=== PATIENT | female | born 1995 | race Caucasian/White ===

== ENCOUNTER 2020-09-15 19:27 | Inpatient (IN) | payer BC ==
[~2020-09-15] VITALS: Ht 167.7 cm; Wt 87.4 kg
--- NOTE | 2020-09-15 19:32 | NUR ---
KAI PACE presented to unit via ambulatory from ED, accompanied by , with c/o INDUCTION. KAI PACE weighed, gowned, voided, and to bed. EFHM and TOCO applied, VS taken. KAI PACE oriented to bed controls, call light, TV, heat, and A/C controls.
[2020-09-15 19:45] VITALS: BP 121/79
[2020-09-15] MEDS ORDERED: D5 LR IV SOLUTION 1,000 ML IV ONE (20:11)
[2020-09-15] MEDS ORDERED: AMPICILLIN FOR IV USE 2,000 MG in WATER (STERILE) FOR INJECTION 14.8 ML IV SCH (20:24)
[2020-09-15] MEDS ORDERED: AMPICILLIN 2,000 MG/14.8 ML (IV USE) ONE (20:25)
[2020-09-15] MEDS ORDERED: NS IV 500 ML 500 ML ONE (20:25)
[2020-09-15] MEDS ORDERED: WATER (STERILE) FOR INJECTION 20 ML ONE (20:25)
[2020-09-15] MEDS ORDERED: NS IV 500 ML 500 ML IV ONE (20:30)
[2020-09-15] MEDS ORDERED: TERBUTALINE INJ 1 MG/ML (BRETHINE) AMP SC PRN (20:30)
[2020-09-15] MEDS ORDERED: MISOPROSTOL 100 MCG (CYTOTEC) TAB PO ONE (20:30)
[2020-09-15 20:32] LABS: BASOPHILS % (AUTO) 0 % (0-10); EOSINOPHILS # (AUTO) 0.1 10^3/uL (0.0-0.3); EOSINOPHILS % (AUTO) 1 % (0-10); HEMATOCRIT 35 % (35-52); HEMOGLOBIN 11.9 g/dL (11.5-16.0); LYMPHOCYTES # (AUTO) 1.9 10^3/uL (1.0-4.0); LYMPHOCYTES % (AUTO) 17 % (12-44); MEAN CORPUSCULAR HEMOGLOBIN 29 pg (25-34); MEAN CORPUSCULAR HGB CONC 34 g/dL (32-36); MEAN CORPUSCULAR VOLUME 86 fL (80-99); MEAN PLATELET VOLUME 10.5 fL (9.0-12.2); MONOCYTES # (AUTO) 0.9 10^3/uL (0.0-1.0); MONOCYTES % (AUTO) 8 % (0-12); NEUTROPHILS # (AUTO) 8.1 10^3/uL (1.8-7.8); NEUTROPHILS % (AUTO) 73 % (42-75); PLATELET COUNT 245 10^3/uL (130-400)
[2020-09-15] MEDS: D5 LR IV SOLUTION 1,000 ML IV SCH (20:36)
[2020-09-15] MEDS ORDERED: PREN1TAB19 PO (21:18)
[2020-09-15 21:20] VITALS: BP 131/77
[2020-09-15] MEDS: CATHETER FLUSH 10 ML SYR IV SCH (22:00)
[2020-09-15 22:32] VITALS: BP 120/63
[2020-09-16] VITALS (57 sets, daily range): BP systolic 107–147; BP diastolic 56–83
[2020-09-16] MEDS: AMPICILLIN FOR IV USE 1,000 MG in WATER (STERILE) FOR INJECTION 7.4 ML IV SCH ×4 (00:13→12:16)
[2020-09-16] MEDS: MISOPROSTOL 100 MCG (CYTOTEC) TAB PO SCH ×2 (01:26→05:30)
[2020-09-16] MEDS: D5 LR IV SOLUTION 1,000 ML IV SCH ×2 (03:45→12:15)
[2020-09-16] MEDS: CATHETER FLUSH 10 ML SYR IV SCH (05:39)
[2020-09-16] MEDS ORDERED: OXYTOCIN PRE-MIX DRIP 500 ML IV ONE (06:48)
--- NOTE | 2020-09-16 06:50 | NUR ---
Dr. Melvin updated on pt's status, pitocin protocol order received.
[2020-09-16] MEDS ORDERED: OXYTOCIN PRE-MIX DRIP 500 ML IV SCH ×2 (07:00→16:00)
[2020-09-16] MEDS ORDERED: fentaNYL 2 mcg/ml BUPIVA 0.125 100 ML ONE (09:05)
--- NOTE | 2020-09-16 09:12 | NUR ---
Anesthesia notified of epidural request
--- NOTE | 2020-09-16 09:18 | History & Physical-OB ---
OB - Chief Complaint & HPI Date/Time Date of Admission: Date of Admission: Sep 15, 2020 at 7:27 pm Date seen by a Provider: Sep 16, 2020 Time Seen by a Provider: 07:55 Chief Complaint/History OB-Reason for Admission/Chief: Induction of Labor Hx : 1 Hx Para: 0 Expected Date of Delivery: Sep 20, 2020 Gestational Age in Weeks: 39 Gestational Age in Days: 2 Admission Nurse Assessment Rev: Yes History of Labs GBS pos Allergies and Home Medications Allergies Coded Allergies: No Known Drug Allergies (Unverified , 09/15/20) Home Medications Vit/Iron Fumarate/FA 1 Each Tablet, 1 EACH PO DAILY, (Reported) Patient Home Medication List Home Medication List Reviewed: Yes OB - History Hx of Present Care: Yes Ultrasounds: Normal mid trimester US Obstetrical Complications: None Medical Complications: None Patient Past Medical History n/a OB - Admission Exam Physical Exam Vitals: Vital Signs 09/15/20 09/16/20 09/16/20 19:45 07:50 08:20 Temp 37.5 Pulse 77 Resp 18 B/P (MAP) 123/77 (92) Pulse Ox 100 O2 Delivery Room Air HEENT: NCAT Heart: Rhythm Normal Lungs: Clear Abdomen: Gravid Extremities: Normal Reflexes: Normal Cervical Dilatation: 2cm Effacement: 50% Station: -1 Membranes: Intact Heart Rate: 130's Accelerations: Accelerations Present Decelerations: No Decelerations Short Term Variability: Present Senior Care Variability: Average (6-25) Contractions on Admission: 6-10 Minutes Apart Intensity: Mild Labs Laboratory Tests Test 09/15/20 20:00 09/15/20 20:40 Range/Units White Blood Count 11.0 4.3-11.0 10^3/uL Red Blood Count 4.06 3.80-5.11 10^6/uL Hemoglobin 11.9 11.5-16.0 g/dL Hematocrit 35 35-52 % Mean Corpuscular Volume 86 80-99 fL Mean Corpuscular Hemoglobin 29 25-34 pg Mean Corpuscular Hemoglobin Concent 34 32-36 g/dL Red Cell Distribution Width 12.7 10.0-14.5 % Platelet Count 245 130-400 10^3/uL Mean Platelet Volume 10.5 9.0-12.2 fL Immature Granulocyte % (Auto) 0 % Neutrophils (%) (Auto) 73 42-75 % Lymphocytes (%) (Auto) 17 12-44 % Monocytes (%) (Auto) 8 0-12 % Eosinophils (%) (Auto) 1 0-10 % Basophils (%) (Auto) 0 0-10 % Neutrophils # (Auto) 8.1 H 1.8-7.8 10^3/uL Lymphocytes # (Auto) 1.9 1.0-4.0 10^3/uL Monocytes # (Auto) 0.9 0.0-1.0 10^3/uL Eosinophils # (Auto) 0.1 0.0-0.3 10^3/uL Basophils # (Auto) 0.0 0.0-0.1 10^3/uL Immature Granulocyte # (Auto) 0.0 0.0-0.1 10^3/uL OB - Assessment/Plan/Diagnosis Assessment Assessment: induction of labor Admission Dx 25 yo @ 39.2 weeks GBS pos Admission Status: Inpatient Order (span 2 midnights) Reason for Inpatient Admission: Induction of labor at term 39 weeks Plan Plan: Induction Induction Method: per Misoprostol Protocol ILIR GREGORY DO Sep 16, 2020 9:18 am
[2020-09-16] MEDS ORDERED: LACTATED RINGERS 1,000 ML IV SCH (10:00)
[2020-09-16] MEDS ORDERED: METOCLOPRAMIDE INJ 10 MG/2 ML (REGLAN) IV PRN (10:00)
[2020-09-16] MEDS ORDERED: ONDANSETRON 4 MG/2 ML (SDV) Z0FRAN IV PRN (10:00)
[2020-09-16] MEDS ORDERED: EPIDURAL (fentaNYL 2 MCG/ML BUPIVA 0.125%)100 ML BAG EPI SCH (10:00)
[2020-09-16] MEDS ORDERED: diphenhydrAMINE 50 MG/ML INJ (BENADRYL) IV PRN (10:00)
[2020-09-16] MEDS ORDERED: NALOXONE 0.4 MG/ML 1 ML (NARCAN) VIAL IV PRN ×2 (10:00)
[2020-09-16] MEDS ORDERED: LIDOCAINE/EPI 2% 1:200,00 (XYLOCAINE) 10 ML VIAL ONE (14:44)
[2020-09-16] MEDS ORDERED: TETANUS,DIPTH,PERTUSS P/F (BOOSTRIX) 0.5 ML VIAL IM ONE (16:00)
[2020-09-16] MEDS ORDERED: BENZOCAINE/MENTHOL (DERMOPLAST) 60 ML CAN TP PRN (16:00)
[2020-09-16] MEDS ORDERED: MEASLES,MUMPS,RUBELLA 1 EA INJ SQ ONE (16:00)
[2020-09-16] MEDS ORDERED: WITCH HAZEL(TUCKS) 40 EA JAR TOP PRN (16:00)
[2020-09-16] MEDS ORDERED: HYDROcodone/APAP 5 MG/325 MG (LORTAB) TAB PO PRN (16:00)
[2020-09-16] MEDS ORDERED: DIBUCAINE (NUPERCAINAL) 1% OINT 30 GM TOP PRN (16:00)
--- NOTE | 2020-09-16 16:07 | OB Labor & Delivery Record ---
L&D History Date of Service Date of Service: Sep 16, 2020 History Expected Date of Delivery: Sep 20, 2020 Gestational Age in Weeks: 39 Hx : 1 Hx Para: 0 Complications Events: Routine care Operative Indications (Cesarea: N/A-Vaginal Delivery Intrapartal Events: None L&D Stage1 Stage One Onset of Labor - Date: Sep 16, 2020 Monitors and Tracing Monitor Mode: External Heart Rate: 130 Monitor Accelerations: Uniform Monitor Decelerations: None Station: 0 Automatic Centrifugal Station Operator Variability: Average (6-10) Short Term Variability: Present Presentation: Vertex Vital Signs VS - Last 72 Hours, by Label 09/15/20 09/15/20 09/15/20 09/16/20 19:45 21:20 22:32 00:13 Temp 36.9 36.9 Pulse 92 76 71 77 Resp 18 18 16 16 B/P (MAP) 131/77 (95) 120/63 (82) 131/83 (99) Pulse Ox 100 O2 Delivery Room Air Room Air Room Air Room Air 09/16/20 09/16/20 09/16/20 09/16/20 01:25 03:45 07:50 08:05 Temp 36.9 36.9 37.5 Pulse 73 76 96 Resp 16 18 18 B/P (MAP) 107/59 (75) 136/83 (100) 123/79 (94) O2 Delivery Room Air Room Air Room Air 09/16/20 09/16/20 09/16/20 09/16/20 08:20 08:35 08:50 09:05 Pulse 77 87 77 93 Resp 18 18 18 18 B/P (MAP) 123/77 (92) 134/83 (100) 126/76 (93) 129/80 (96) O2 Delivery Room Air Room Air Room Air Room Air 09/16/20 09/16/20 09/16/20 09/16/20 09:20 09:33 09:36 09:39 Pulse 99 90 86 86 Resp 18 18 18 18 B/P (MAP) 126/61 (82) 143/70 (94) 147/75 (99) 135/77 (96) Pulse Ox 100 100 100 O2 Delivery Room Air Room Air Room Air Room Air 09/16/20 09/16/20 09/16/20 09/16/20 09:42 09:45 09:48 09:51 Temp 37.6 Pulse 84 74 91 91 Resp 18 18 18 18 B/P (MAP) 129/78 (95) 129/80 (96) 120/76 (91) 119/73 (88) Pulse Ox 100 100 100 100 O2 Delivery Room Air Room Air Room Air Room Air 09/16/20 09/16/20 09/16/20 09/16/20 09:54 09:57 10:00 10:03 Pulse 86 94 87 90 Resp 18 18 18 18 B/P (MAP) 123/77 (92) 119/75 (90) 119/70 (86) 122/74 (90) Pulse Ox 100 99 99 99 O2 Delivery Room Air Room Air Room Air Room Air 09/16/20 09/16/20 09/16/20 09/16/20 10:06 10:09 10:12 10:15 Pulse 73 76 85 87 Resp 18 18 18 18 B/P (MAP) 120/74 (89) 119/73 (88) 116/73 (87) 133/66 (88) Pulse Ox 100 100 97 100 O2 Delivery Room Air Room Air Room Air Room Air 09/16/20 09/16/20 09/16/20 09/16/20 10:20 10:30 10:35 10:40 Pulse 82 76 77 95 Resp 18 18 18 18 B/P (MAP) 125/71 (89) 126/66 (86) 119/67 (84) 115/70 (85) Pulse Ox 100 100 100 100 O2 Delivery Room Air Room Air Room Air Room Air 09/16/20 09/16/20 09/16/20 09/16/20 11:00 11:15 11:30 11:45 Temp 36.8 Pulse 74 92 80 86 Resp 18 18 18 18 B/P (MAP) 108/57 (74) 129/75 (93) 136/75 (95) 118/69 (85) Pulse Ox 100 100 100 O2 Delivery Room Air Room Air Room Air Room Air 09/16/20 09/16/20 09/16/20 09/16/20 12:00 12:15 12:30 12:45 Pulse 86 89 90 96 Resp 18 18 18 18 B/P (MAP) 123/68 (86) 122/74 (90) 127/76 (93) 130/63 (85) O2 Delivery Room Air Room Air Room Air Room Air 09/16/20 09/16/20 13:00 13:30 Temp 37.7 Pulse 105 96 Resp 18 18 B/P (MAP) 123/76 (92) 124/71 (88) O2 Delivery Room Air Room Air Rupture of Membranes Spontaneous Ruture of Membrane: Yes Amniotic Membrane Rupture Time: 0752 Amniotic Membrane Fluid Desc.: Clear Vaginal Bleeding Description: Normal Show Induction/Anesthesia Epidural Cath Placement - Time: 941 Progress/Notes Patient admitted last night for induction of labor at 39 weeks with misoprostol used po for cervical ripening. This AM pitocin was started, and she progressed after receiving an epidural to complete and 0 station. L&D Stage2 Stage Two Stage II Date: Sep 16, 2020 Monitors and Tracing Monitor Mode: External Heart Rate: 130 Monitor Accelerations: Uniform Monitor Decelerations: Variable Automatic Centrifugal Station Operator Variability: Average (6-10) Short Term Variability: Present Position: Right Occiput Anterior Presentation: Vertex Cord Descript/Complications Cord Vessel Description: 3 Vessels Complications nuchal cord reduced x 1, small partial cord avulsion. Delivery Type Delivery Method: Spontaneous Vaginal Episiotomy/Perineal Laceration Laceraction(s)/Extensions: Yes Episiotomy Description: Left Mediolateral Degree (describe repair) LML repaired using 3-0 and 2-0 vicryl suture in usual fashion. Condition of Infant Delivery 1 minute Comment: 8 5 minute Comment: 9 Notes live male weight 9lbs 7 oz Condition of Infant Condition of : Living Exam: No Observed Abnormalities Resuscitation Resuscitation: N/A - Spontaneous Resp L&D Stage3 Stage Three Stage III Date: Sep 16, 2020 Pictocin Pitocin Administration mu/min: 0 Pitocin ml/hr: 0 Pitocin Administration Comment: Wide open 30 mu at delivery of placenta Placenta Delivery Placenta Delivery: Spontaneous Delivery Summary Summary Estimated blood loss (mL): 400 Attending at delivery: Ilir Gregory DO Condition of Delivery Examined: Cervix Examined, Uterus Explored Post Hemorrhage: No Condition of Mother stable Condition of Infant (s) stable ILIR GREGORY DO Sep 16, 2020 16:07
--- NOTE | 2020-09-16 16:15 | Discharge Inst-Women's Service ---
Discharge Inst-Women's Serv Depart Medication/Instructions New, Converted or Re-Newed RX: RX on Chart Final Diagnosis PPD 1 NVD Problems Reviewed?: Yes Consults/Follow Up Additional Follow Up: Yes Orders/Referrals Dr. Gregory in 6 weeks Activity Activity: Activity as Tolerated Driving Instructions: No Driving for 1 Week NO SMOKING: NO SMOKING Nothing Inside Vagina: No Douching, No [place], No Tampons Diet Discharge Diet: No Restrictions Symptoms to Report to : Bleeding Excessive, Pain Increased, Fever Over 101 Degrees F, Vaginal Bleeding Increase, Questions/Concerns ILIR GREGORY DO Sep 16, 2020 16:15
[2020-09-16] MEDS ORDERED: ACHD5005 PO (16:17)
[2020-09-16] MEDS ORDERED: BENZ78AE5 TP (16:17)
[2020-09-16] MEDS ORDERED: IBUP-844 PO (16:17)
[2020-09-16] MEDS ORDERED: DIBU30OI TOP (16:17)
[2020-09-16] MEDS ORDERED: DCS100C PO (16:17)
--- NOTE | 2020-09-16 18:00 | NUR ---
To room to move pt to PP room. FFU/1, light rubra lochia noted, no clots expressed. Epidural catheter removed, tip intact. Pt assisted to sitting position at side of bed. Pt desires own depends underwear instead of hospital provided mesh underwear and pad. Pt assisted into Depends. Pt assisted to standing position at side of bed. At this time pt reports feeling dizzy and nauseated. Pt assisted back to bed and to trendelenberg, VS taken, stable. After a few minutes, pt reports feeling better. Pt again assisted to standing, this time without incident. Pt assisted to wheelchair and taken to PP room 310 accompanied by RNs, S.O., , and all personal belongings. Pt denies urge to void at this time, so assisted to bed. Pt and S.O. oriented to room and call light. packet explained. Motrin given. Pt denies further needs or concerns
[2020-09-16] MEDS: IBUPROFEN 600 MG (MOTRIN) TAB PO SCH (18:17)
[2020-09-16] MEDS: DOCUSATE SODIUM 100 MG (COLACE) CAP PO SCH (20:23)
[2020-09-16] MEDS ORDERED: CATHETER FLUSH 10 ML SYR IV SCH (22:00)
[2020-09-17 00:01] VITALS: BP 114/78
[2020-09-17] MEDS: IBUPROFEN 600 MG (MOTRIN) TAB PO SCH ×4 (00:01→18:27)
[2020-09-17 04:45] VITALS: BP 111/62
[2020-09-17 06:32] LABS: BASOPHILS % (AUTO) 0 % (0-10); EOSINOPHILS # (AUTO) 0.1 10^3/uL (0.0-0.3); EOSINOPHILS % (AUTO) 1 % (0-10); HEMATOCRIT 30 % (35-52); LYMPHOCYTES # (AUTO) 1.5 10^3/uL (1.0-4.0); LYMPHOCYTES % (AUTO) 11 % (12-44); MEAN CORPUSCULAR HEMOGLOBIN 29 pg (25-34); MEAN CORPUSCULAR HGB CONC 33 g/dL (32-36); MEAN CORPUSCULAR VOLUME 87 fL (80-99); MEAN PLATELET VOLUME 10.6 fL (9.0-12.2); MONOCYTES # (AUTO) 1.2 10^3/uL (0.0-1.0); MONOCYTES % (AUTO) 9 % (0-12); NEUTROPHILS # (AUTO) 10.9 10^3/uL (1.8-7.8); NEUTROPHILS % (AUTO) 80 % (42-75); PLATELET COUNT 178 10^3/uL (130-400); WHITE BLOOD COUNT 13.7 10^3/uL (4.3-11.0)
[2020-09-17] MEDS ORDERED: PRENATAL VITAMIN 1 EA TAB PO SCH (07:00)
--- NOTE | 2020-09-17 07:53 | Anesthesia-Regional Post-Op ---
Regional Patient Condition Mental Status: Alert, Oriented x3 Circulation: Same as Pre-Op Headache: Absent Sensation: Full Recovery Motor Block: Absent Post Op Complications Complications None Follow Up Care/Instructions Patient Instructions None needed. Anesthesia/Patient Condition Patient is doing well, no complaints, stable vital signs, no apparent adverse anesthesia problems. No complications reported per nursing. ISABELLE MARAVILLA CRNA Sep 17, 2020 07:53
--- NOTE | 2020-09-17 07:54 | NUR ---
Dr Melvin here to see pt. Plan for discharge today
[2020-09-17] MEDS ORDERED: FERROUS SULF 325 MG (IRON) TAB PO SCH (08:00)
--- NOTE | 2020-09-17 08:22 | Postpartum Progress Note ---
Note Note Day # 1 Subjective: Patient is without complaints. Ambulating, voiding. Tolerating a regular diet without nausea or vomiting. Normal lochia. Pain is well controlled with oral pain medications. Objective: Physical Exam: General - Alert and oriented, no apparent distress Abdomen - Soft, appropriately tender to palpation, non-distended, fundus firm at umbilicus Extremities - no edema, negative Joseline's bilaterally Assessment: PPD 1 NVD Acute blood loss anemia Plan: Routine care. Encourage breast feeding. Encourage ambulation. Ferrous sulfate supplementation. Plan for discharge today Vitals - Labs Vital Signs - I&O Vital Signs Date Time Temp Pulse Resp B/P (MAP) Pulse Ox O2 Delivery O2 Flow Rate FiO2 09/17/20 04:45 36.7 83 18 111/62 (78) 98 Room Air 09/17/20 00:01 36.5 83 18 114/78 (90) 98 Room Air 09/16/20 20:23 37.6 105 18 115/56 (75) 98 Room Air 09/16/20 18:00 37.6 82 18 123/79 (94) Room Air 09/16/20 17:44 100 18 121/69 (86) Room Air 09/16/20 17:29 95 18 127/74 (91) Room Air 09/16/20 17:14 95 18 128/66 (86) Room Air 09/16/20 16:59 38.1 97 18 137/73 (94) Room Air 09/16/20 16:44 85 18 128/67 (87) Room Air 09/16/20 16:29 84 18 127/60 (82) Room Air 09/16/20 16:14 134 18 143/67 (92) Room Air 09/16/20 15:59 100 18 140/64 (89) Room Air 09/16/20 15:44 38.2 114 18 137/60 (85) Room Air 09/16/20 15:29 87 18 127/67 (87) Room Air 09/16/20 15:15 38.1 111 18 120/79 (93) Room Air 09/16/20 15:00 97 18 120/78 (92) Room Air 09/16/20 14:45 105 18 114/70 (85) Room Air 09/16/20 14:30 37.8 105 18 114/70 (85) Room Air 09/16/20 14:15 115 18 118/68 (85) Room Air 09/16/20 14:00 100 18 122/69 (86) Room Air 09/16/20 13:45 103 18 124/72 (89) Room Air 09/16/20 13:30 96 18 124/71 (88) Room Air 09/16/20 13:00 37.7 105 18 123/76 (92) Room Air 09/16/20 12:45 96 18 130/63 (85) Room Air 09/16/20 12:30 90 18 127/76 (93) Room Air 09/16/20 12:15 89 18 122/74 (90) Room Air 09/16/20 12:00 86 18 123/68 (86) Room Air 09/16/20 11:45 86 18 118/69 (85) Room Air 09/16/20 11:30 80 18 136/75 (95) 100 Room Air 09/16/20 11:15 92 18 129/75 (93) 100 Room Air 09/16/20 11:00 36.8 74 18 108/57 (74) 100 Room Air 09/16/20 10:40 95 18 115/70 (85) 100 Room Air 09/16/20 10:35 77 18 119/67 (84) 100 Room Air 09/16/20 10:30 76 18 126/66 (86) 100 Room Air 09/16/20 10:20 82 18 125/71 (89) 100 Room Air 09/16/20 10:15 87 18 133/66 (88) 100 Room Air 09/16/20 10:12 85 18 116/73 (87) 97 Room Air 09/16/20 10:09 76 18 119/73 (88) 100 Room Air 09/16/20 10:06 73 18 120/74 (89) 100 Room Air 09/16/20 10:03 90 18 122/74 (90) 99 Room Air 09/16/20 10:00 87 18 119/70 (86) 99 Room Air 09/16/20 09:57 94 18 119/75 (90) 99 Room Air 09/16/20 09:54 86 18 123/77 (92) 100 Room Air 09/16/20 09:51 91 18 119/73 (88) 100 Room Air 09/16/20 09:48 91 18 120/76 (91) 100 Room Air 09/16/20 09:45 74 18 129/80 (96) 100 Room Air 09/16/20 09:42 37.6 84 18 129/78 (95) 100 Room Air 09/16/20 09:39 86 18 135/77 (96) 100 Room Air 09/16/20 09:36 86 18 147/75 (99) 100 Room Air 09/16/20 09:33 90 18 143/70 (94) 100 Room Air 09/16/20 09:20 99 18 126/61 (82) Room Air 09/16/20 09:05 93 18 129/80 (96) Room Air 09/16/20 08:50 77 18 126/76 (93) Room Air 09/16/20 08:35 87 18 134/83 (100) Room Air I & O 09/17/20 07:00 Intake Total 2414.8 ml Balance 2414.8 ml Labs Laboratory Tests 09/17/20 06:05: White Blood Count 13.7H, Red Blood Count 3.50L, Hemoglobin 10.0L, Hematocrit 30L , Mean Corpuscular Volume 87, Mean Corpuscular Hemoglobin 29, Mean Corpuscular Hemoglobin Concent 33, Red Cell Distribution Width 13.0, Platelet Count 178, Mean Platelet Volume 10.6, Immature Granulocyte % (Auto) 0, Neutrophils (%) (Auto) 80H, Lymphocytes (%) (Auto) 11L, Monocytes (%) (Auto) 9, Eosinophils (%) (Auto) 1, Basophils (%) (Auto) 0, Neutrophils # (Auto) 10.9H, Lymphocytes # (Auto) 1.5, Monocytes # (Auto) 1.2H, Eosinophils # (Auto) 0.1, Basophils # (Auto) 0.0, Immature Granulocyte # (Auto) 0.1 ILIR GREGORY DO Sep 17, 2020 8:22 am
[2020-09-17] MEDS: DOCUSATE SODIUM 100 MG (COLACE) CAP PO SCH (09:14)
[2020-09-17 09:17] VITALS: BP 126/73
[2020-09-17 12:18] VITALS: BP 119/70
[2020-09-17 18:35] VITALS: BP 121/73
== END 2020-09-17 18:40 | disposition home or self-care (01) | DRG 806 ==
LOC: LDRP 19:27
PROVIDERS: ADMIT Obstetrics & Gynecology; ATTEND Obstetrics & Gynecology
PROC: 10E0XZZ Delivery of Products of Conception, External Approach (ICD-10-PCS; principal; 2020-09-16)
PROC: 0W8NXZZ Division of Female Perineum, External Approach (ICD-10-PCS; 2020-09-16)
DX: O69.81X0 Labor and delivery complicated by cord around neck, without compression, not applicable or unspecified (principal); D62 Acute posthemorrhagic anemia; Z37.0 Single live birth; Z3A.39 39 weeks gestation of pregnancy; O90.81 Anemia of the puerperium
CPT/HCPCS: 36415; 83033; 85025; 86850; 86900; 86901; 87635

== ENCOUNTER → 2022-07-07 | Outpatient (CLI) | payer BC ==
[~2022-07-07] MED LIST: ACHD5005 PO; BENZ78AE5 TP; DIBU30OI TOP; DOCU-239 PO; IBUP-844 PO; PREN1TAB19 PO
--- NOTE | 2022-07-07 17:30 | Diagnostic Imaging Report ---
INDICATION: anatomy survey. TECHNIQUE: Multiple real-time grayscale images were obtained over the gravid uterus. COMPARISON: None FINDINGS: Single live intrauterine is in breech presentation. The cervix measures 4.7 cm in length. Placenta is posteriorly positioned and there is no previa. The amount of amniotic fluid appears visually appropriate. Maternal adnexa are not well evaluated due to advanced gestational age. Following anatomy is visualized and normal: Stomach, right ventricular outflow tract, left ventricular outflow tract, spine, diaphragm, kidneys, umbilical cord insertion, urinary bladder, cerebral ventricles, posterior fossa, four-chamber heart, profile and lip/nose. Biometrical measurements are as follows: Biparietal 4.47 cm, age 19 weeks 4 days. Head circumference 17.94 cm, age 20 weeks 3 days. Abdominal circumference 15.15 cm, age 20 weeks 3 days. Femur length 3.30 cm, age 20 weeks 3 days. Sonographic estimate age: 20 weeks 2 days. Sonographic estimated date of delivery: 11/22/2022. Estimated Weight: 346 gm (+/- 51 gm). LMP percentile: 39%. heart rate: 153 beats per minute. number: 1 of 1. IMPRESSION: 1. Single live intrauterine with normal anatomy survey. 2. Estimated weight is at the 39th percentile for gestational age based on clinical dates. Dictated by: Dictated on workstation # [id number]
== END ==
LOC: RAD 14:56
PROVIDERS: ATTEND Obstetrics & Gynecology
DX: Z34.02 Encounter for supervision of normal first pregnancy, second trimester (principal); Z3A.00 Weeks of gestation of pregnancy not specified
CPT/HCPCS: 76805

== ENCOUNTER 2022-10-24 10:07 | Outpatient (CLI) | payer BC ==
[2022-10-24] VITALS (10 sets, daily range): BP systolic 95–117; BP diastolic 55–82
[~2022-10-24] VITALS: Ht 170.2 cm; Wt 87.6 kg
[2022-10-24 11:15] LABS: BILIRUBIN,URINE NEGATIVE (NEGATIVE); CLARITY,URINE CLEAR; COLOR,URINE YELLOW; GLUCOSE, URINE (UA) NEGATIVE (NEGATIVE); KETONES,URINE NEGATIVE (NEGATIVE); LEUKOCYTE ESTERASE ,URINE TRACE (NEGATIVE); NITRITE,URINE NEGATIVE (NEGATIVE); PH,URINE 7.5 (5-9); PROTEIN,URINE NEGATIVE (NEGATIVE)
[2022-10-24 11:26] LABS: RBC,URINE 0 /HPF
[2022-10-24 11:27] LABS: BACTERIA,URINE TRACE /HPF
--- NOTE | 2022-10-25 08:06 | Physician Query-Final Dx ---
GERALDO,10/25/22 0806: Clinic Account Progress/Dx Physician Query: Please give diagnosis Please include # weeks gestation Date of Service Oct 24, 2022 at 10:07 ILIR GREGORY DO 10/25/22 1813: Clinic Account Progress/Dx DIAGNOSIS: Diagnosis Irregular contractions at 37 weeks ,SepOct 25, 2022 08:06 ILIR GREGORY DO Oct 25, 2022 18:13
== END 2022-10-24 12:35 | disposition home or self-care (01) ==
LOC: LDRP 10:07 → WSo 10:07
PROVIDERS: ATTEND Obstetrics & Gynecology
DX: O47.1 False labor at or after 37 completed weeks of gestation (principal); Z3A.37 37 weeks gestation of pregnancy
CPT/HCPCS: 81000; 87088; G0463; 99213

== ENCOUNTER 2022-11-01 12:56 | Inpatient (IN) | payer BC ==
[~2022-11-01] VITALS: Ht 167.7 cm; Wt 88.8 kg
[2022-11-01] VITALS (31 sets, daily range): BP systolic 94–136; BP diastolic 50–99
--- NOTE | 2022-11-01 13:05 | History & Physical-OB/GYN ---
LOIS JENSEN 11/01/22 1305: OB - Chief Complaint & HPI Date/Time Date of Admission: Date of Admission: Nov 01, 2022 at 12:56 Date seen by a Provider: Nov 01, 2022 Time Seen by a Provider: 13:15 Chief Complaint/History OB-Reason for Admission/Chief: Onset of Labor Hx : 2 Hx Para: 1 Expected Date of Delivery: Nov 21, 2022 Gestational Age in Weeks: 37 Gestational Age in Days: 1 Other reason for admission: active labor History of Labs A- Antibody negative VDRL NR HBsAg NR HIV NR G/C NR RI GBS Positive Allergies and Home Medications Allergies Coded Allergies: No Known Drug Allergies (Unverified , 09/15/20) Patient Home Medication List Home Medication List Reviewed: Yes Docusate Sodium (Dok) 100 Mg Capsule, 100 MG PO BID PRN for CONSTIPATION-1ST LINE Prescribed by: ILIR GREGORY on 09/16/20 1617 Vit/Iron Fumarate/FA ( Vitamins Tablet) 1 Each Tablet, 1 EACH PO DAILY, (Reported) Entered as Reported by: TIP GONZALEZ on 09/15/202117 Last Action: Last Taken Edited OB - History Hx of Present Care: Yes Ultrasounds: Normal mid trimester US Obstetrical Complications: None Medical Complications: None Information Pre-Hospital Medication Admins: none Induced Hypertension: No Maternal Gestational Diabetes: No Hemorrhage: No Obstetrical History Hx : 2 Hx Para: 1 Hx # Term Pregnancies: 1 Number of Living Children: 1 Hx Termination: No Hx Multiple Gestation: No Hx Ectopic : No Hx Stillbirth: No Hx Complication: No Hx Induced Hypertens: No Hx Maternal Gestational Diabet: No Hx Hemorrhage: No Delivery History Hx Dystocia: No Hx Forceps Assisted Delivery: No Hx Vacuum Extraction Assisted: No Hx Placenta Abnormality: No Hx Distress: No Hx Large For Gestational Age I: Yes Hx Small for Gestational Age I: No Hx Section: No Hx Vaginal Delivery Post C-Sec: No Hx Blood Disorders: No Adverse Rxn to Tranfusion: No Patient Past Medical History NC Social History/Family History Alcohol Use: Denies Use Recreational Drug Use: No Smoking Cessation: Never smoker 2nd Hand Smoke Exposure: No Immunizations Rubella: immune RPR/VDRL: Negative GBS Status: Positive HBsAG: Negative OB - Admission Exam Physical Exam HEENT: PERRLA Heart: Rhythm Normal Lungs: Clear Abdomen: Gravid Extremities: Edema Reflexes: Normal Cervical Dilatation: 3cm Effacement: 75% Station: -1 Heart Rate: 140's Accelerations: Accelerations Present Decelerations: No Decelerations Short Term Variability: Present Fdc Variability: Minimal (3-5) Contractions on Admission: >10 Minutes Apart OB - Assessment/Plan/Diagnosis Assessment Admission Dx at 39 weeks 1 day gestational age Presents in active labor GBS Positive Otherwise uncomplicated Admission Status: Inpatient Order (span 2 midnights) Reason for Inpatient Admission: active labor Plan Plan: Expectant Management ILIR GREGORY DO 11/02/22 0100: Allergies and Home Medications Allergies Coded Allergies: No Known Drug Allergies (Unverified , 09/15/20) Patient Home Medication List Docusate Sodium (Dok) 100 Mg Capsule, 100 MG PO BID PRN for CONSTIPATION-1ST LINE Prescribed by: ILIR GREGORY on 09/16/20 1617 Vit/Iron Fumarate/FA ( Vitamins Tablet) 1 Each Tablet, 1 EACH PO DAILY, (Reported) Entered as Reported by: TIP GONZALEZ on 09/15/202117 Last Action: Last Taken Edited Supervisory-Addendum Brief Verification & Attestation Participated in pt care: history Personally performed: exam Care discussed with: Medical Student Procedures: n/a Procedure type: I&D Results interpretation: Verified all documentation Verification and Attestation of Medical Student E/M Service A medical student performed and documented this service in my presence. I reviewed and verified all information documented by the medical student and made modifications to such information, when appropriate. I personally performed the physical exam and medical decision making. Ilir Gregory Nov 02, 2022,01:00 LOIS JENSEN Nov 01, 2022 13:05 ILIR GREGORY DO Nov 02, 2022 01:00
[2022-11-01] MEDS ORDERED: AMPICILLIN FOR IV USE 2,000 MG in NS (IVPB) 50 ML IV SCH (13:37)
[2022-11-01] MEDS ORDERED: CATHETER FLUSH 10 ML SYR IVP PRN (13:45)
[2022-11-01] MEDS ORDERED: LIDOCAINE 1% INJ 20 ML VIAL IJ PRN (13:45)
[2022-11-01 13:53] LABS: BASOPHILS % (AUTO) 0 % (0-10); EOSINOPHILS # (AUTO) 0.1 10^3/uL (0.0-0.3); EOSINOPHILS % (AUTO) 1 % (0-10); HEMATOCRIT 33 % (35-52); HEMOGLOBIN 11.3 g/dL (11.5-16.0); LYMPHOCYTES # (AUTO) 1.2 10^3/uL (1.0-4.0); LYMPHOCYTES % (AUTO) 13 % (12-44); MEAN CORPUSCULAR HEMOGLOBIN 29 pg (25-34); MEAN CORPUSCULAR HGB CONC 34 g/dL (32-36); MEAN CORPUSCULAR VOLUME 86 fL (80-99); MEAN PLATELET VOLUME 10.3 fL (9.0-12.2); MONOCYTES # (AUTO) 0.7 10^3/uL (0.0-1.0); MONOCYTES % (AUTO) 7 % (0-12); NEUTROPHILS # (AUTO) 7.5 10^3/uL (1.8-7.8); NEUTROPHILS % (AUTO) 79 % (42-75); PLATELET COUNT 184 10^3/uL (130-400); WHITE BLOOD COUNT 9.4 10^3/uL (4.3-11.0)
[2022-11-01] MEDS: D5 LR IV SOLUTION 1,000 ML IV SCH ×2 (14:15→21:58)
[2022-11-01] MEDS ORDERED: LIDOCAINE 1% INJ 10 ML VIAL INJ PRN (14:15)
[2022-11-01] MEDS: AMPICILLIN FOR IV USE 1,000 MG in NS (IVPB) 50 ML IV SCH ×2 (17:53→21:58)
[2022-11-01] MEDS: OXYTOCIN PRE-MIX DRIP 500 ML IV SCH (18:23)
[2022-11-01] MEDS ORDERED: fentaNYL 2 mcg/ml BUPIVA 0.125 100 ML ONE (19:22)
[2022-11-01] MEDS ORDERED: BUPIVACAINE 0.25% 10 ML (SENSORCAINE) VIAL ONE (19:57)
[2022-11-01] MEDS ORDERED: fentaNYL INJ 100 MCG/2 ML AMP ONE (19:57)
[2022-11-01] MEDS ORDERED: LACTATED RINGERS 1,000 ML IV SCH ×2 (20:00→20:30)
[2022-11-01] MEDS ORDERED: ONDANSETRON 4 MG/2 ML (SDV) Z0FRAN IV PRN (20:30)
[2022-11-01] MEDS ORDERED: diphenhydrAMINE 50 MG/ML INJ (BENADRYL) IV PRN (20:30)
[2022-11-01] MEDS ORDERED: fentaNYL 2 mcg/ml BUPIVA 0.125 100 ML EPI SCH (20:30)
[2022-11-01] MEDS ORDERED: NALOXONE 0.4 MG/ML 1 ML (NARCAN) VIAL IV PRN (20:30)
[2022-11-02] VITALS (17 sets, daily range): BP systolic 109–127; BP diastolic 56–78
[2022-11-02] MEDS ORDERED: OXYTOCIN PRE-MIX DRIP 500 ML IV SCH (01:15)
[2022-11-02] MEDS ORDERED: BENZOCAINE/MENTHOL (DERMOPLAST) 56 ML CAN TP PRN (01:15)
[2022-11-02] MEDS ORDERED: TETANUS,DIPTH,PERTUSS P/F (BOOSTRIX) 0.5 ML VIAL IM ONE (01:15)
[2022-11-02] MEDS ORDERED: MEASLES,MUMPS,RUBELLA 1 EA INJ SQ ONE (01:15)
[2022-11-02] MEDS ORDERED: HYDROcodone/APAP 5 MG/325 MG (LORTAB) TAB PO PRN (01:15)
[2022-11-02] MEDS ORDERED: NALOXONE 0.4 MG/ML 1 ML (NARCAN) VIAL IV PRN (01:15)
[2022-11-02] MEDS ORDERED: DIBUCAINE 1% OINTMENT 28 GM TUBE TOP PRN (01:15)
--- NOTE | 2022-11-02 01:28 | OB Labor & Delivery Record ---
L&D History Date of Service Date of Service: Nov 02, 2022 History Expected Date of Delivery: Nov 21, 2022 Gestational Age in Weeks: 37 Hx : 2 Hx Para: 1 Complications Events: Routine care Operative Indications (Cesarea: N/A-Vaginal Delivery Intrapartal Events: None L&D Stage1 Stage One Onset of Labor - Date: Nov 02, 2022 Monitors and Tracing Monitor Mode: External Heart Rate: 150 Monitor Accelerations: Uniform Monitor Decelerations: None Station: -1 Partner Integration Planner Variability: Average (6-10) Short Term Variability: Present Presentation: Vertex Vital Signs VS - Last 72 Hours, by Label 11/01/22 11/01/22 11/01/22 11/01/22 13:00 14:20 16:00 17:00 Temp 36.3 36.7 Pulse 108 96 88 Resp 18 18 18 B/P (MAP) 113/68 (83) 130/71 (90) Pulse Ox 98 98 100 O2 Delivery Room Air Room Air Room Air Room Air 11/01/22 11/01/22 11/01/22 11/01/22 18:00 18:15 18:30 18:45 Temp 36.6 Pulse 95 81 91 97 Resp 18 18 18 18 B/P (MAP) 110/68 (82) 123/80 (94) 133/73 (93) 130/73 (92) O2 Delivery Room Air Room Air Room Air Room Air 11/01/22 11/01/22 11/01/22 11/01/22 19:00 19:21 19:42 19:52 Temp 36.2 Pulse 90 90 91 83 Resp 18 18 18 18 B/P (MAP) 133/99 (110) 119/72 (88) 128/80 (96) 129/70 (89) O2 Delivery Room Air Room Air Room Air Room Air 11/01/22 11/01/22 11/01/22 11/01/22 20:06 20:15 20:21 20:24 Pulse 93 89 92 88 Resp 18 18 18 18 B/P (MAP) 136/68 (90) 121/79 (93) 106/60 (75) 94/50 (65) Pulse Ox 99 98 99 O2 Delivery Room Air Room Air Room Air Room Air 11/01/22 11/01/22 11/01/22 11/01/22 20:30 20:35 20:40 20:44 Pulse 95 88 92 73 Resp 18 16 16 16 B/P (MAP) 103/60 (74) 113/73 (86) 116/71 (86) 109/64 (79) Pulse Ox 99 99 99 100 O2 Delivery Room Air Room Air Room Air Room Air 11/01/22 11/01/22 11/01/22 11/01/22 21:02 21:17 21:33 21:48 Pulse 81 70 82 91 Resp 16 16 16 16 B/P (MAP) 107/58 (74) 99/54 (69) 105/60 (75) 99/57 (71) Pulse Ox 99 96 96 96 O2 Delivery Room Air Room Air Room Air Room Air 11/01/22 11/01/22 11/01/22 11/01/22 22:03 22:17 22:31 22:48 Temp 36.3 Pulse 81 82 85 86 Resp 16 16 16 16 B/P (MAP) 109/62 (78) 106/60 (75) 109/59 (76) 108/62 (77) Pulse Ox 98 98 97 98 O2 Delivery Room Air Room Air Room Air Room Air 11/02/22 00:03 Pulse 90 Resp 16 B/P (MAP) 117/68 (84) Pulse Ox 98 O2 Delivery Room Air Rupture of Membranes Spontaneous Ruture of Membrane: No Amniotic Membrane Rupture Time: 1607 Amniotic Membrane Fluid Desc.: Clear Vaginal Bleeding Description: Normal Show Induction/Anesthesia Epidural Cath Placement - Time: 2014 Progress/Notes Patient presented in active labor, AROM performed and augmentation with max dose of 6 mu pitocin reached, epidural placed and patient rapidly progressed to complete and + 2 station L&D Stage2 Stage Two Stage II Date: Nov 02, 2022 Monitors and Tracing Monitor Mode: External Heart Rate: 170 Monitor Accelerations: Uniform Monitor Decelerations: Variable Partner Integration Planner Variability: Average (6-10) Short Term Variability: Present Signs of Distress by FHT Signs of Distress nuchal cord reduced x 1 Cord Descript/Complications Cord Vessel Description: 3 Vessels Delivery Type Delivery Method: Spontaneous Vaginal Anterior Shoulder: Left Episiotomy/Perineal Laceration Laceraction(s)/Extensions: Yes Episiotomy Description: Periurethral Extnsion/lac, Perineal Extension/lac, 1st degree Location Modifier: Medial Degree (describe repair) bilateral periurethral and perineal lacerations repaired using 3-0 rapide in usual fashion Condition of Infant Delivery 1 minute Comment: 8 5 minute Comment: 8 Notes Live female weight 10lbs 3oz, Condition of Infant Condition of : Living Exam: No Observed Abnormalities Resuscitation Resuscitation: N/A - Spontaneous Resp L&D Stage3 Stage Three Stage III Date: Nov 02, 2022 Pictocin Pitocin ml/hr: 6 Pitocin Administration Comment: 30 mu wide open after delivery of placetna Placenta Delivery Placenta Delivery: Spontaneous Delivery Summary Summary Estimated blood loss (mL): 350 Attending at delivery: Ilir Gregory DO Condition of Delivery Examined: Cervix Examined, Uterus Explored Post Hemorrhage: No Condition of Mother stable Condition of Infant (s) stable ILIR GREGORY DO Nov 02, 2022 01:28
--- NOTE | 2022-11-02 01:30 | Discharge Inst-Women's Service ---
Discharge Inst-Women's Serv Depart Medication/Instructions New, Converted or Re-Newed RX: Transmitted to Pharmacy Final Diagnosis PPD 2 NVD Problems Reviewed?: Yes Consults/Follow Up Additional Follow Up: Yes Orders/Referrals Dr. Gregory in 6 weeks Activity Activity: Activity as Tolerated Driving Instructions: No Driving for 1 Week NO SMOKING: NO SMOKING Nothing Inside Vagina: No Douching, No Wickes, No Tampons Diet Discharge Diet: No Restrictions Symptoms to Report to : Bleeding Excessive, Pain Increased, Fever Over 101 Degrees F, Vaginal Bleeding Increase, Questions/Concerns For Any Problems or Questions: Contact Your Physician ILIR GREGORY DO Nov 02, 2022 01:30
[2022-11-02] MEDS ORDERED: DOCU100C37 PO (01:31)
[2022-11-02] MEDS ORDERED: BENZ78AE5 TP (01:31)
[2022-11-02] MEDS ORDERED: FERR325T24 PO (01:31)
[2022-11-02] MEDS ORDERED: ACHD5005 PO (01:31)
[2022-11-02] MEDS ORDERED: DIBU30OI TOP (01:31)
[2022-11-02] MEDS ORDERED: IBUP-844 PO (01:31)
[2022-11-02] MEDS: OXYTOCIN PRE-MIX DRIP 500 ML IV SCH (01:52)
[2022-11-02] MEDS: IBUPROFEN 600 MG (MOTRIN) TAB PO SCH ×4 (03:39→22:47)
[2022-11-02] MEDS: WITCH HAZEL(TUCKS) 40 EA JAR TOP PRN (03:40)
[2022-11-02] MEDS ORDERED: CATHETER FLUSH 10 ML SYR IV SCH (06:00)
--- NOTE | 2022-11-02 06:37 | Postpartum Progress Note ---
Note Note Day # 0 Subjective: Patient is without complaints. Ambulating, voiding. Tolerating a regular diet without nausea or vomiting. Normal lochia. Pain is well controlled with oral pain medications. Breast feeding. Objective: Patient is seated in bed breast feeding at time of evaluation, no signs of distress. Physical Exam: General - Alert and oriented, no apparent distress Abdomen - Soft, appropriately tender to palpation, non-distended, fundus firm at umbilicus Extremities - no edema, negative Joseline's bilaterally Assessment: PPD 0, s/o NVD Acute blood loss anemia. Plan: Routine care. Encourage breast feeding. Encourage ambulation. Ferrous sulfate supplementation. Plan for discharge in 2 days. Vitals - Labs Vital Signs - I&O Vital Signs Date Time Temp Pulse Resp B/P (MAP) Pulse Ox O2 Delivery O2 Flow Rate FiO2 11/02/22 03:39 37.0 90 16 117/69 (85) Room Air 11/02/22 03:09 102 16 123/66 (85) Room Air 11/02/22 02:31 36.9 99 16 116/63 (80) Room Air 11/02/22 02:16 98 16 114/67 (83) Room Air 11/02/22 02:01 96 16 113/59 (77) Room Air 11/02/22 01:46 104 16 109/56 (73) Room Air 11/02/22 01:33 108 16 111/62 (78) Room Air 11/02/22 01:16 116 16 110/58 (75) Room Air 11/02/22 01:02 123 16 110/62 (78) 100 Room Air 11/02/22 00:47 36.9 110 16 120/73 (89) 98 Room Air 11/02/22 00:32 116 16 113/68 (83) 98 Room Air 11/02/22 00:17 103 16 127/76 (93) 98 Room Air 11/02/22 00:03 90 16 117/68 (84) 98 Room Air 11/01/22 23:47 96 16 112/59 (76) 98 Room Air 11/01/22 23:32 81 16 124/64 (84) 99 Room Air 11/01/22 23:16 36.3 104 16 101/54 (70) 97 Room Air 11/01/22 23:02 106 16 113/60 (77) 97 Room Air 11/01/22 22:48 86 16 108/62 (77) 98 Room Air 11/01/22 22:31 85 16 109/59 (76) 97 Room Air 11/01/22 22:17 82 16 106/60 (75) 98 Room Air 11/01/22 22:03 36.3 81 16 109/62 (78) 98 Room Air 11/01/22 21:48 91 16 99/57 (71) 96 Room Air 11/01/22 21:33 82 16 105/60 (75) 96 Room Air 11/01/22 21:17 70 16 99/54 (69) 96 Room Air 11/01/22 21:02 81 16 107/58 (74) 99 Room Air 11/01/22 20:44 73 16 109/64 (79) 100 Room Air 11/01/22 20:40 92 16 116/71 (86) 99 Room Air 11/01/22 20:35 88 16 113/73 (86) 99 Room Air 11/01/22 20:30 95 18 103/60 (74) 99 Room Air 11/01/22 20:24 88 18 94/50 (65) 99 Room Air 11/01/22 20:21 92 18 106/60 (75) 98 Room Air 11/01/22 20:15 89 18 121/79 (93) 99 Room Air 11/01/22 20:06 93 18 136/68 (90) Room Air 11/01/22 19:52 83 18 129/70 (89) Room Air 11/01/22 19:42 91 18 128/80 (96) Room Air 11/01/22 19:21 36.2 90 18 119/72 (88) Room Air 11/01/22 19:00 90 18 133/99 (110) Room Air 11/01/22 18:45 97 18 130/73 (92) Room Air 11/01/22 18:30 91 18 133/73 (93) Room Air 11/01/22 18:15 81 18 123/80 (94) Room Air 11/01/22 18:00 36.6 95 18 110/68 (82) Room Air 11/01/22 17:00 Room Air 11/01/22 16:00 36.7 88 18 130/71 (90) 100 Room Air 11/01/22 14:20 96 18 113/68 (83) 98 Room Air 11/01/22 13:00 36.3 108 18 98 Room Air I & O 11/02/22 07:00 Intake Total 3534.8 ml Output Total 350 ml Balance 3184.8 ml Labs Laboratory Tests 11/01/22 13:10: White Blood Count 9.4, Red Blood Count 3.88, Hemoglobin 11.3L, Hematocrit 33L, Mean Corpuscular Volume 86, Mean Corpuscular Hemoglobin 29, Mean Corpuscular Hemoglobin Concent 34, Red Cell Distribution Width 13.6, Platelet Count 184, Mean Platelet Volume 10.3, Immature Granulocyte % (Auto) 0, Neutrophils (%) (Auto) 79H, Lymphocytes (%) (Auto) 13, Monocytes (%) (Auto) 7, Eosinophils (%) (Auto) 1, Basophils (%) (Auto) 0, Neutrophils # (Auto) 7.5, Lymphocytes # (Auto) 1.2, Monocytes # (Auto) 0.7, Eosinophils # (Auto) 0.1, Basophils # (Auto) 0.0, Immature Granulocyte # (Auto) 0.0 11/01/22 14:07: Syphilis Serology Non-Reactive LOIS JENSEN Nov 02, 2022 06:37
[2022-11-02] MEDS: DOCUSATE SODIUM 100 MG (COLACE) CAP PO SCH ×2 (09:58→20:34)
[2022-11-02] MEDS: FERROUS SULF 325 MG (IRON) TAB PO SCH (09:58)
[2022-11-02] MEDS: PRENATAL VITAMIN 1 EA TAB PO SCH (09:58)
--- NOTE | 2022-11-02 13:22 | Anesthesia-Regional Post-Op ---
Regional Patient Condition Mental Status: Alert, Oriented x3 Circulation: Same as Pre-Op Headache: Absent Sensation: Full Recovery Motor Block: Absent Post Op Complications Complications None Follow Up Care/Instructions Patient Instructions None needed. Anesthesia/Patient Condition Patient is doing well, no complaints, stable vital signs, no apparent adverse anesthesia problems. No complications reported per nursing. GIOVANNY DAVIES DO Nov 02, 2022 13:22
[2022-11-03] MEDS: IBUPROFEN 600 MG (MOTRIN) TAB PO SCH ×3 (00:14→12:13)
[2022-11-03 01:15] VITALS: BP 111/73
[2022-11-03 04:36] LABS: BASOPHILS # (AUTO) 0.1 10^3/uL (0.0-0.1); BASOPHILS % (AUTO) 1 % (0-10); EOSINOPHILS # (AUTO) 0.3 10^3/uL (0.0-0.3); EOSINOPHILS % (AUTO) 2 % (0-10); HEMATOCRIT 33 % (35-52); HEMOGLOBIN 10.8 g/dL (11.5-16.0); LYMPHOCYTES # (AUTO) 2.2 10^3/uL (1.0-4.0); LYMPHOCYTES % (AUTO) 19 % (12-44); MEAN CORPUSCULAR HEMOGLOBIN 29 pg (25-34); MEAN CORPUSCULAR HGB CONC 33 g/dL (32-36); MEAN CORPUSCULAR VOLUME 87 fL (80-99); MEAN PLATELET VOLUME 10.2 fL (9.0-12.2); MONOCYTES # (AUTO) 0.9 10^3/uL (0.0-1.0); MONOCYTES % (AUTO) 8 % (0-12); NEUTROPHILS # (AUTO) 8.1 10^3/uL (1.8-7.8); NEUTROPHILS % (AUTO) 71 % (42-75); PLATELET COUNT 183 10^3/uL (130-400); WHITE BLOOD COUNT 11.5 10^3/uL (4.3-11.0)
[2022-11-03] MEDS: WITCH HAZEL(TUCKS) 40 EA JAR TOP PRN (06:26)
--- NOTE | 2022-11-03 07:37 | Postpartum Progress Note ---
LOIS JENSEN 11/03/22 0737: Note Note Day # 1 Subjective: Patient is without complaints. Ambulating, voiding. Tolerating a regular diet without nausea or vomiting. Normal lochia. Pain is well controlled with oral pain medications. Breast feeding. Objective: Patient is lying in bed at time of evaluation, no signs of distress. Physical Exam: General - Alert and oriented, no apparent distress Abdomen - Soft, appropriately tender to palpation, non-distended, fundus firm at umbilicus Extremities - no edema, negative Joseline's bilaterally Assessment: PPD 1 s/p NVD Recovering well, hemodynamically stable Plan: Routine care. Encourage breast feeding. Encourage ambulation. Ferrous sulfate supplementation. Plan for discharge tomorrow. Vitals - Labs Vital Signs - I&O Vital Signs Date Time Temp Pulse Resp B/P (MAP) Pulse Ox O2 Delivery O2 Flow Rate FiO2 11/03/22 01:15 36.9 78 18 111/73 (86) 98 Room Air 11/02/22 20:34 36.3 76 18 114/78 (90) 98 Room Air 11/02/22 16:23 37.0 78 20 115/77 (90) 98 Room Air 11/02/22 12:15 36.9 94 18 119/67 (84) 11/02/22 10:10 37.1 96 18 124/74 (91) 98 Room Air Labs Laboratory Tests 11/03/22 04:25: White Blood Count 11.5H, Red Blood Count 3.74L, Hemoglobin 10.8L, Hematocrit 33L , Mean Corpuscular Volume 87, Mean Corpuscular Hemoglobin 29, Mean Corpuscular Hemoglobin Concent 33, Red Cell Distribution Width 13.9, Platelet Count 183, Mean Platelet Volume 10.2, Immature Granulocyte % (Auto) 0, Neutrophils (%) (Auto) 71, Lymphocytes (%) (Auto) 19, Monocytes (%) (Auto) 8, Eosinophils (%) (Auto) 2, Basophils (%) (Auto) 1, Neutrophils # (Auto) 8.1H, Lymphocytes # (Auto) 2.2, Monocytes # (Auto) 0.9, Eosinophils # (Auto) 0.3, Basophils # (Auto) 0.1, Immature Granulocyte # (Auto) 0.0 ILIR GREGORY DO 11/03/22 0820: Note Note Verification and Attestation of Medical Student E/M Service A medical student performed and documented this service in my presence. I reviewed and verified all information documented by the medical student and made modifications to such information, when appropriate. I personally performed the physical exam and medical decision making. Ilir Gregory, Nov 03, 2022,08:20 LOIS JENSEN Nov 03, 2022 07:37 ILIR GREGORY DO Nov 03, 2022 08:20
[2022-11-03 08:21] VITALS: BP 118/76
[2022-11-03] MEDS: DOCUSATE SODIUM 100 MG (COLACE) CAP PO SCH (09:01)
[2022-11-03] MEDS: FERROUS SULF 325 MG (IRON) TAB PO SCH (09:01)
[2022-11-03] MEDS: PRENATAL VITAMIN 1 EA TAB PO SCH (09:01)
[2022-11-03 11:45] VITALS: BP 116/69
== END 2022-11-03 16:45 | disposition home or self-care (01) | DRG 806 ==
LOC: LDRP 12:56
PROVIDERS: ADMIT Obstetrics & Gynecology; ATTEND Obstetrics & Gynecology
PROC: 10E0XZZ Delivery of Products of Conception, External Approach (ICD-10-PCS; principal; 2022-11-02)
PROC: 0HQ9XZZ Repair Perineum Skin, External Approach (ICD-10-PCS; 2022-11-02)
PROC: 0UQMXZZ Repair Vulva, External Approach (ICD-10-PCS; 2022-11-02)
DX: O99.824 Streptococcus B carrier state complicating childbirth (principal); D62 Acute posthemorrhagic anemia; Z37.0 Single live birth; O70.0 First degree perineal laceration during delivery; O71.82 Other specified trauma to perineum and vulva; O69.81X0 Labor and delivery complicated by cord around neck, without compression, not applicable or unspecified; O90.81 Anemia of the puerperium; Z3A.37 37 weeks gestation of pregnancy
CPT/HCPCS: 36415; 85025; 86780; 86850; 86900; 86901